=== PATIENT | male | born 1950 | race Caucasian/White ===

== ENCOUNTER 2017-02-01 09:59 | Day surgery (SDC) | payer MEDICARE ==
[~2017-02-01] VITALS: Ht 170.2 cm; Wt 131.4 kg
[~2017-02-01 09:59] MED LIST: ALTACE5 MG; ASCORBIC ACID500 MG PO; ASPIRIN325 MG PO; ATIVAN0.5 MG PO; COLACE100 MG PO; CRESTOR10 MG; DUTOPROL 50-121 EACH; ELIQUIS2.5 MG PO; FISH OIL 500 MG1 CAP PO; GLUCOPHAGE500 MG PO; KLONOPIN1 MG PO; LANTUS SOL100 UNIT/1; LASIX20 MG; MULTIPLE VITAMI1 TA1 PO; NORCO 10/325 TA1 TA1 PO; OXYCODONE HCL5 MG PO; PERCOCET 10/3251 TA1 PO; PLAVIX75 MG; TOPROL XL50 MG PO
[2017-02-01] MEDS ORDERED: FERROUS SULFAT325 MG PO (10:40)
[2017-02-01] MEDS ORDERED: BAYER CHEWABLE81 MG PO (10:40)
[2017-02-01] MEDS ORDERED: ACETAMINOPHEN500 M1 PO (10:41)
[2017-02-01] MEDS ORDERED: MYLANTA / MAALO30 ML PO (10:41)
[2017-02-01] MEDS ORDERED: PLAVIX75 MG PO (10:41)
[2017-02-01 10:49] VITALS: Ht 170.2 cm; Wt 131.4 kg
[2017-02-01 12:58] LABS: BASOPHILS 0.2 % (0-2); EOSINOPHILS 1.1 % (0-7); HEMOGLOBIN 13.3 g/dL (13.5-17.5); IMMATURE GRANULOCYTES 0.2 % (0-5); LYMPHOCYTES 20.7 % (15-50); MCH 27.7 pg (26.0-34.0); MCHC 31.7 g/dL (31.0-37.0); MCV 87.5 fL (80.0-100.0); MEAN PLATELET VOLUME 10.1 fL (7.4-10.4); MONOCYTES 10.1 % (2-11); NEUTROPHILS 67.7 % (40-80); PLATELET COUNT 208 10x3/uL (130-400); RDW 16.4 % (11.5-14.5); WBC 5.4 10x3/uL (4.8-10.8)
[2017-02-01 13:09] LABS: CALC OSMOLALITY 278 mosm/kg (275-300); CALCIUM 9.6 mg/dL (8.5-10.1); CARBON DIOXIDE 26.7 mmol/L (21.0-32.0); CHLORIDE - SERUM 99 mmol/L (98-107); CREATININE - SERUM 0.9 mg/dL (0.6-1.3); GLUCOSE 109 mg/dL (74-106); POTASSIUM - SERUM 4.2 mmol/L (3.5-5.1); SODIUM 139 mmol/L (136-145); UREA NITROGEN 12 mg/dL (7-18); eGFR NON AFRICAN AMERICAN 90 mL/min (90-120)
--- NOTE | 2017-02-02 07:48 | OP ---
PATIENT NAME: GIANA RODNEY MEDICAL RECORD: [id number] :54 LOCATION:[facility] ADMISSION DATE: SURGEON: ITALO SHARMA DO DATE OF OPERATION: 02/01/2017 PROCEDURE: Colonoscopy with polypectomy. INDICATIONS FOR PROCEDURE: Iron deficiency anemia. SCOPE: Olympus video pediatric colonoscope. MEDICATIONS: Propofol 600 mg IV per anesthesia. WITHDRAWAL TIME: 15 minutes. ESTIMATED BLOOD LOSS: Minimal. COMPLICATIONS: None. FINDINGS: Informed consent was given. The patient was made comfortable with the above medication. After reaching an adequate level of sedation by slow IV push, the patient was placed on his left side. A digital rectal examination was performed and was normal. The endoscope was then advanced under direct visualization through the rectum to the cecum with visualization of the appendiceal orifice and ileocecal valve. There was a single polyp visualized on today's examination. It was located in the transverse colon. It was benign appearing and sessile and measured approximately 5 mm in size. It was removed using a hot snare in 1 piece and completely retrieved. There was very mild diverticulosis involving multiple segments of the colon. Retroflexion was performed in the rectum with a normal appearing rectal wall. The scope was withdrawn from the patient. The patient tolerated the procedure well and there were no complications. IMPRESSION: 1. Mild diverticulosis involving multiple segments of the colon. 2. A single polyp as described above, removed with hot snare. 3. No findings to explain iron deficiency anemia. PLAN AND RECOMMENDATIONS: 1. Discharge home when recovery parameters are met. 2. Continue current diet. 3. Continue current medications. 4. Consider upper endoscopy if there is an ongoing concerns that patient is losing blood from his GI tract. I do not have any record of a Hemoccult stool. His blood indices are normocytic and not microcytic as one would suspect with a slow GI blood loss. That being said, upper endoscopy could be performed to complete the workup. 5. Anticipate a recall colonoscopy in 5 years based on a likely tubular adenomatous polyp, which was removed on today's examination. TRANSINT:[id number] Voice Confirmation ID: [id number] DOCUMENT ID: [id number] OPERATIVE REPORT [id number] GIANA RODNEY ITALO SHARMA DO at 0748 CC: [id number] DICTATION DATE: 02/01/17 1412 [employer] TECHNICIAN: 02/01/17 1600 [facility] 02/01/[address] [facility] [address] [facility] [place] [address]
== END 2017-02-01 15:00 | disposition home or self-care (01) ==
LOC: D.OPS 09:59
PROVIDERS: Anesthesiology
DX: K57.30 Diverticulosis of large intestine without perforation or abscess without bleeding (principal); D12.3 Benign neoplasm of transverse colon; D50.9 Iron deficiency anemia, unspecified; Z01.812 Encounter for preprocedural laboratory examination

== ENCOUNTER 2017-02-10 09:50 | Day surgery (SDC) | payer MEDICARE ==
[~2017-02-10] VITALS: Ht 170.2 cm; Wt 127.9 kg
[~2017-02-10 09:50] MED LIST changes: +ACETAMINOPHEN500 M1 PO; +BAYER CHEWABLE81 MG PO; +FERROUS SULFAT325 MG PO; +MYLANTA / MAALO30 ML PO; +PLAVIX75 MG PO
[2017-02-10] MEDS ORDERED: ALEVE PM PO (10:18)
[2017-02-10 10:23] LABS: BASOPHILS 0.4 % (0-2); EOSINOPHILS 2.6 % (0-7); HEMATOCRIT 39.9 % (42.0-54.0); HEMOGLOBIN 12.9 g/dL (13.5-17.5); LYMPHOCYTES 20.6 % (15-50); MCH 28.4 pg (26.0-34.0); MCHC 32.3 g/dL (31.0-37.0); MCV 87.7 fL (80.0-100.0); MEAN PLATELET VOLUME 9.5 fL (7.4-10.4); NEUTROPHILS 66.4 % (40-80); PLATELET COUNT 228 10x3/uL (130-400); RBC 4.55 10x6/uL (4.20-6.10); RDW 16.1 % (11.5-14.5)
[2017-02-10] MEDS ORDERED: HYDROCODONE-APA1 TAB PO (10:25)
[2017-02-10] MEDS ORDERED: BACTRIM DS TABL1 TAB PO (10:25)
[2017-02-10] MEDS ORDERED: AMBIEN5 MG PO (10:26)
[2017-02-10 10:35] VITALS: BP 119/69; Ht 170.2 cm; Wt 127.9 kg
[2017-02-10 10:47] LABS: ANION GAP 15.6 mmol/L (8-16); CALCIUM 9.8 mg/dL (8.5-10.1); CARBON DIOXIDE 25.1 mmol/L (21.0-32.0); CREATININE - SERUM 1.1 mg/dL (0.6-1.3); POTASSIUM - SERUM 4.7 mmol/L (3.5-5.1)
[2017-02-10 11:12] LABS: INR 1.02 (0.85-1.17); PROTIME 13.2 SECONDS (11.6-15.0)
[2017-02-10 11:13] LABS: APTT 30.5 SECONDS (22.8-39.4)
--- NOTE | 2017-02-17 12:06 | OP ---
PATIENT NAME: GIANA RODNEY MEDICAL RECORD: [id number] :54 LOCATION:[facility] ADMISSION DATE: SURGEON: MILAGROS COLLAZO MD DATE OF OPERATION: 02/10/2017 PREOPERATIVE DIAGNOSIS: Abscess to the right hand palmar aspect. POSTOPERATIVE DIAGNOSIS: Abscess to the right hand palmar aspect. PROCEDURE: Excisional debridement of abscess to include significant skin, subcutaneous tissue, portions of fat, fascia and muscle. Note, this is a through and through abscess. OPERATIVE SUMMARY IN DETAIL: After obtaining the appropriate preoperative orthopedic surgery consent as well as anesthetic consultation, evaluation and clearance, the patient was brought to the operating room and placed on the operating table in supine position. After adequate general laryngeal mask was administered, the patient's right upper extremity was prepped and draped in routine sterile fashion. A stab incision was made over the part between the second and third finger. Pus was immediately expressed, cultures were taken. Careful dissection was carried down into the recesses and essentially, the abscess was to the palmar aspect. A second incision was made over the palmar aspect. Tcfhlfi-[id number]-[id number] irrigation was followed by gentle curettage to remove all nonviable tissue. This was then packed with quarter-inch iodoform gauze from both sides, not packed through and through to create a fistula. Having completed this, sterile dressings were applied. The patient was awakened, taken to the recovery room in stable condition. All final needle and sponge counts were correct. TRANSINT:[id number] Voice Confirmation ID: [id number] DOCUMENT ID: [id number] MILAGROS COLLAZO MD at 1206 CC: [id number] DICTATION DATE: 02/10/17 1245 [employer]: 02/10/17 1826 [facility] 02/10/17 [facility] [address] [place] [id number]
== END 2017-02-10 14:59 | disposition home or self-care (01) ==
LOC: D.OPS 09:50
PROVIDERS: Anesthesiology
DX: L03.113 Cellulitis of right upper limb (principal); I25.10 Atherosclerotic heart disease of native coronary artery without angina pectoris; I10 Essential (primary) hypertension; E11.9 Type 2 diabetes mellitus without complications; G47.30 Sleep apnea, unspecified; Z95.5 Presence of coronary angioplasty implant and graft; K21.9 Gastro-esophageal reflux disease without esophagitis; Z01.812 Encounter for preprocedural laboratory examination

== ENCOUNTER → 2017-10-28 08:41 | Outpatient (CLI) | payer MEDICARE ==
[2017-02-10 10:35] VITALS: BMI 44.3
[~2017-10-28 08:41] MED LIST changes: +ALEVE PM PO; +AMBIEN5 MG PO; +BACTRIM DS TABL1 TAB PO; +HYDROCODONE-APA1 TAB PO
== END | disposition home or self-care (01) ==
LOC: D.MRI 10-26 14:00
DX: M25.561 Pain in right knee (principal)

== ENCOUNTER → 2018-05-27 10:39 | Outpatient (CLI) | payer MEDICARE ==
[2017-02-10 10:35] VITALS: BMI 44.3
== END | disposition home or self-care (01) ==
LOC: D.MRI 10:39
DX: M25.531 Pain in right wrist (principal)